=== PATIENT | female | born 1945 | race Caucasian/White ===

== ENCOUNTER 2025-06-20 19:53 | Emergency (ER) | payer MEDICARE, BC ==
[~2025-06-20] VITALS: Ht 167.6 cm; Wt 104.3 kg
[2025-06-20 20:09] VITALS: TEMP 98.5
[2025-06-20 20:12] VITALS: BP 176/91; O2SAT 98
== END 2025-06-20 21:03 | disposition home or self-care (01) ==
LOC: ER 20:03
DX: I95.1 Orthostatic hypotension (principal); R42 Dizziness and giddiness; R00.2 Palpitations; E86.0 Dehydration; I44.0 Atrioventricular block, first degree

== ENCOUNTER 2025-08-05 02:56 | Inpatient (IN) | payer MEDICARE, BC ==
[~2025-08-05] VITALS: Ht 165.1 cm; Wt 88.1 kg
[2025-08-05] MEDS: KETOROLAC TROMETHAMINE 15 MG/ML VIAL IV ONE (04:00)
[2025-08-05 04:13] LABS: PLATELET COUNT (AUTO) 187 K/uL (150-450); RED BLOOD CELL COUNT(AUTO) 4.18 MIL/uL (4.0-5.2); RED CELL DISTRIBUTION WIDTH 13.1 % (11.5-15.0); WHITE BLOOD COUNT (AUTO) 5.9 K/uL (4.3-11.0)
[2025-08-05] MEDS: IV NS 0.9% 1,000 ML BAG IV ONE ×2 (04:17→06:23)
[2025-08-05 04:20] LABS: CALCIUM, SERUM 8.8 mg/dL (8.5-10.1); CREATININE 0.8 mg/dL (0.6-1.3); SODIUM SERUM 143.0 mmol/L (136-145); UREA NITROGEN, BLOOD 14.0 mg/dL (7-18)
[2025-08-05 04:27] LABS: ASPARTATE AMINOTRANSFERASE 19.0 U/L (15-37); TOTAL PROTEIN, SERUM 6.9 g/dL (6.4-8.2)
[2025-08-05] MEDS ORDERED: CT SWABBABLE VALVE TRANS SET 1 EA INFUS.SET MC ONE ×2 (04:30→06:22)
[2025-08-05] MEDS ORDERED: IV NS 0.9% 250 ML IV ONE ×2 (04:30→06:22)
[2025-08-05] MEDS ORDERED: IOHEXOL-300 100 ML VIAL IV ONE (04:31)
[2025-08-05] MEDS ORDERED: IOHEXOL-350 100 ML VIAL IV ONE (06:22)
[2025-08-05 07:04] LABS: APPEARANCE,URINE CLEAR (CLEAR); BLOOD, URINE NEGATIVE Ery/uL (NEGATIVE); LEUKOCYTE ESTERASE ,URINE NEGATIVE (NEGATIVE); NITRITE, URINE NEGATIVE (NEGATIVE); UGLUCOSE NEGATIVE (NEGATIVE)
[2025-08-05] MEDS ORDERED: ENOXAPARIN SODIUM 80 MG/0.8 ML DISP.SYRIN SQ ONE (07:52)
[2025-08-05] MEDS: ENOXAPARIN SODIUM 80 MG/0.8 ML DISP.SYRIN SQ ONE (07:57)
[2025-08-05] MEDS ORDERED: METH500T4 PO (08:16)
[2025-08-05] MEDS ORDERED: ALPR0.5T8 PO (08:16)
[2025-08-05] MEDS ORDERED: ROSU5TAB13 PO (08:16)
[2025-08-05] MEDS ORDERED: ESTR42.5 VG (08:16)
[2025-08-05] MEDS ORDERED: GABA600T PO (08:16)
[2025-08-05] MEDS ORDERED: LATA2.5D15 EACHEYE (08:16)
[2025-08-05] MEDS ORDERED: MAGN200T5 PO (08:16)
[2025-08-05] MEDS ORDERED: MAG HYDROX/AL HYDROX/SIMETH 30 ML UDC PO PRN (11:00)
[2025-08-05] MEDS ORDERED: MAGNESIUM HYDROXIDE 30 ML UDC PO PRN (11:00)
[2025-08-05] MEDS ORDERED: ONDANSETRON HCL/PF 4 MG/2 ML VIAL IVP PRN (11:00)
[2025-08-05] MEDS ORDERED: Z GUARD REMEDY 4 OZ OINT TP PRN (11:00)
[2025-08-05] MEDS ORDERED: ZOLPIDEM TARTRATE 5 MG TABLET PO PRN (11:00)
[2025-08-05 12:00] VITALS: BP 135/69; TEMP 98.2; O2SAT 95
[2025-08-05 13:37] LABS: INR 1.04 (0.91-1.10)
[2025-08-05 16:00] VITALS: BP 101/60; TEMP 98.2; O2SAT 96
[2025-08-05] MEDS ORDERED: ENOXAPARIN SODIUM 40 MG/0.4 ML DISP.SYRIN SQ SCH (17:00)
[2025-08-05] MEDS: ACETAMINOPHEN 325 MG TABLET PO PRN (17:45)
[2025-08-05] MEDS ORDERED: ESTROGENS,CONJUGATED TUBE VG SCH (18:30)
[2025-08-05] MEDS ORDERED: ALPRAZOLAM 0.5 MG TABLET PO PRN (18:30)
[2025-08-05] MEDS: LATANOPROST EYE DROP 0.005% 2.5 ML BOTTLE EACHEYE SCH (20:11)
[2025-08-05] MEDS: ENOXAPARIN SODIUM 80 MG/0.8 ML DISP.SYRIN SQ SCH (20:15)
[2025-08-05] MEDS: ATORVASTATIN 40 MG TABLET PO SCH (21:30)
[2025-08-05] MEDS: GABAPENTIN 300 MG CAPSULE PO SCH (21:30)
[2025-08-06 06:54] LABS: PLATELET COUNT (AUTO) 159 K/uL (150-450); RED BLOOD CELL COUNT(AUTO) 3.76 MIL/uL (4.0-5.2); RED CELL DISTRIBUTION WIDTH 13.0 % (11.5-15.0); WHITE BLOOD COUNT (AUTO) 3.5 K/uL (4.3-11.0)
[2025-08-06 07:18] LABS: ASPARTATE AMINOTRANSFERASE 17.0 U/L (15-37); CALCIUM, SERUM 8.4 mg/dL (8.5-10.1); CREATININE 0.8 mg/dL (0.6-1.3); PHOSPHORUS 3.3 mg/dL (2.5-4.9); SODIUM SERUM 142.0 mmol/L (136-145); TOTAL PROTEIN, SERUM 6.2 g/dL (6.4-8.2); UREA NITROGEN, BLOOD 9.0 mg/dL (7-18)
[2025-08-06 08:00] VITALS: BP 112/42; TEMP 101.8; O2SAT 89
[2025-08-06 16:03] VITALS: BP 115/85; TEMP 98.8; O2SAT 99
[2025-08-06 20:00] VITALS: BP 124/51; TEMP 98.4; O2SAT 96
[2025-08-07] VITALS: BP 130/56; TEMP 98.4; O2SAT 95
[2025-08-07 04:00] VITALS: BP 128/54; TEMP 99; O2SAT 98
[2025-08-07 08:00] VITALS: BP 121/64; TEMP 99.1; O2SAT 92
[2025-08-07 08:06] LABS: PLATELET COUNT (AUTO) 133 K/uL (150-450); RED BLOOD CELL COUNT(AUTO) 3.71 MIL/uL (4.0-5.2); RED CELL DISTRIBUTION WIDTH 13.2 % (11.5-15.0); WHITE BLOOD COUNT (AUTO) 3.0 K/uL (4.3-11.0)
[2025-08-07 08:11] LABS: *SPE A/G RATIO 1.4 (0.7-1.7); *SPE ALBUMIN 3.4 g/dL (2.9-4.4); *SPE ALPHA-1-GLOBULIN 0.2 g/dL (0.0-0.4); *SPE ALPHA-2-GLOBULIN 0.5 g/dL (0.4-1.0); *SPE BETA GLOBULIN 0.9 g/dL (0.7-1.3); *SPE GLOBULIN, TOTAL 2.4 g/dL (2.2-3.9); *SPE M-SPIKE Not Observed g/dL (Not Observed); *SPE PROTEIN TOTAL 5.8 g/dL (6.0-8.5); *SPEGAMMA GLOBULIN 0.8 g/dL (0.4-1.8)
[2025-08-07 08:23] LABS: CALCIUM, SERUM 8.1 mg/dL (8.5-10.1); CREATININE 0.8 mg/dL (0.6-1.3); SODIUM SERUM 138.0 mmol/L (136-145); UREA NITROGEN, BLOOD 9.0 mg/dL (7-18)
[2025-08-07 09:18] LABS: ABG BASE EXCESS 2.4 mmol/L (-2.0-3.0); ABG OXYGEN SATURATION 96.1 % (94.0-98.0); ABG PCO2 31.3 mmHg (32.0-45.0); ABG PH 7.514 (7.350-7.450); ABG PO2 76.6 mmHg (83.0-108.0); ABG TOTAL HEMOGLOBIN 13.3 G/dL (12.0-16.0); FRACTIONATED INSPIRED OXYGEN 21.0 %; SITE, ABG RIGHT RADIAL
[2025-08-07] MEDS: APIXABAN 5 MG TABLET PO SCH (09:36)
[2025-08-07 12:00] VITALS: BP 106/57; TEMP 98.4; O2SAT 93
[2025-08-07 16:00] VITALS: BP 99/67; TEMP 97.7; O2SAT 98
[2025-08-07 20:00] VITALS: BP 133/56; TEMP 98.6; O2SAT 97
[2025-08-08 04:00] VITALS: BP 123/60; TEMP 97.9; O2SAT 97
[2025-08-08 06:54] LABS: PLATELET COUNT (AUTO) 139 K/uL (150-450); RED BLOOD CELL COUNT(AUTO) 3.90 MIL/uL (4.0-5.2); RED CELL DISTRIBUTION WIDTH 13.2 % (11.5-15.0); WHITE BLOOD COUNT (AUTO) 2.9 K/uL (4.3-11.0)
[2025-08-08 07:26] LABS: CALCIUM, SERUM 8.1 mg/dL (8.5-10.1); CREATININE 0.8 mg/dL (0.6-1.3); SODIUM SERUM 144.0 mmol/L (136-145); UREA NITROGEN, BLOOD 10.0 mg/dL (7-18)
[2025-08-08 08:00] VITALS: BP 122/62; TEMP 98.2; O2SAT 95
[2025-08-08] MEDS ORDERED: APIX5TAB PO ×2 (10:16→10:22)
[2025-08-08 12:07] LABS: *THROMBIN TIME 19.7 sec (0.0-23.0); *dRVVT 32.8 sec (0.0-47.0); PROTEIN C ACTIVITY 90 % (73-180)
[2025-08-10 03:09] LABS: FOLIC ACID 16.7 ng/mL (>3.0)
[2025-08-10 06:07] LABS: CANCER AG, 125 10.0 U/mL (0.0-38.1); CARCINOEMBRYONIC ANTIGEN (CEA) 2.3 ng/mL (0.0-4.7)
[2025-08-10 07:08] LABS: IMMUNOGLOBULIN A, SERUM 210 mg/dL (64-422); IMMUNOGLOBULIN M, SERUM 116 mg/dL (26-217)
[2025-08-10 08:10] LABS: HOMOCYSTEINE, PLASMA 16.2 umol/L (0.0-21.3)
[2025-08-10 10:07] LABS: FREE KAPPA LT CHAINS SERUM 28.4 mg/L (3.3-19.4); FREE LAMBDA LT CHAIN SERUM 29.5 mg/L (5.7-26.3); KAPPA/LAMBDA RATIO SERUM 0.96 (0.26-1.65)
[2025-08-12 08:07] LABS: *CARD ANTI-CARDIOLIPIN AB IgG <9 GPL U/mL (0-14); *CARD ANTI-CARDIOLIPIN AB IgM 10 MPL U/mL (0-12); Beta-2 Glycoprotein I Ab, IgG < 9 (0-20); Beta-2 Glycoprotein I Ab, IgM < 9 (0-32)
[2025-08-12 10:12] LABS: *SPE A/G RATIO 1.0 (0.7-1.7); *SPE ALBUMIN 3.2 g/dL (2.9-4.4); *SPE ALPHA-1-GLOBULIN 0.3 g/dL (0.0-0.4); *SPE ALPHA-2-GLOBULIN 0.8 g/dL (0.4-1.0); *SPE BETA GLOBULIN 1.0 g/dL (0.7-1.3); *SPE GLOBULIN, TOTAL 3.1 g/dL (2.2-3.9); *SPE M-SPIKE Not Observed g/dL (Not Observed); *SPE PROTEIN TOTAL 6.3 g/dL (6.0-8.5); *SPEGAMMA GLOBULIN 1.0 g/dL (0.4-1.8)
[2025-08-13 12:12] LABS: PROTEIN C ACTIVITY 91 % (73-180)
[2025-08-14] MEDS ORDERED: APIXABAN 5 MG TABLET PO SCH (09:00)
[2025-08-14 18:07] LABS: *ANTITHROMBIN III AG 93 % (72-124); *THROMBIN TIME 18.5 sec (0.0-23.0); *dRVVT 73.0 sec (0.0-47.0); *dRVVT CONFIRM 1.2 ratio (0.8-1.2); *dRVVT MIX 54.5 sec (0.0-40.4); ANTITHROMBIN III ACTIVITY 178 % (75-135)
== END 2025-08-08 15:40 | disposition home or self-care (01) | DRG 176 ==
LOC: ER 03:00 → TELE 10:28 → MED 08-08 10:37
PROVIDERS: ADMIT Internal Medicine; ATTEND Internal Medicine
DX: I26.99 Other pulmonary embolism without acute cor pulmonale (principal); D69.6 Thrombocytopenia, unspecified; D72.819 Decreased white blood cell count, unspecified; I26.94 Multiple subsegmental thrombotic pulmonary emboli without acute cor pulmonale; I10 Essential (primary) hypertension; D72.821 Monocytosis (symptomatic); E78.5 Hyperlipidemia, unspecified; G89.29 Other chronic pain; K57.30 Diverticulosis of large intestine without perforation or abscess without bleeding; N94.89 Other specified conditions associated with female genital organs and menstrual cycle; M15.9 Polyosteoarthritis, unspecified; R09.02 Hypoxemia; Z83.2 Family history of diseases of the blood and blood-forming organs and certain disorders involving the immune mechanism; R50.9 Fever, unspecified
CPT/HCPCS: 36415; 36600; 70450-TC; 71045-TC; 76856-TC; 80048-TC; 80053-TC; 81240; 81241; 82378; 82607-TC; 82784; 82803-TC; 83090; 83690-TC; 83735-TC; 83880; 84100-TC; 84155; 84165; 84443-TC; 84484-TC; 85025-TC; 85300; 85301; 85303; 85378-TC; 85610-TC; 85613; 85670; 85705; 85732; 86147; 86304; 86334; 87040-TC; 93307-TC; 93971-TC; G0378; J1650; J7030; J7050; Q9967